=== PATIENT | female | born 1955 | race Caucasian/White ===

== ENCOUNTER → 2017-09-09 | Outpatient (CLI) | payer BC ==
--- NOTE | 2017-09-09 20:08 | Diagnostic Imaging Report ---
EXAMINATION: DEXA scan. INDICATION: Osteopenia. TECHNIQUE: Bone mineral density estimated based on dual energy radiography over the lumbar spine and femoral necks, was performed. FINDINGS: The lumbar spine T-score is -2.3. This is not changed from 2014 measurements. The left femoral neck has T score of -2.8 and on the right side is -2.7. This is 8.7% decreased density measurements compared to 2014 exam. IMPRESSION: Osteoporosis. Dictated by: Dictated on workstation # [id number]
--- NOTE | 2017-09-10 09:45 | Diagnostic Imaging Report ---
Bilateral screening mammogram 2D views with tomosynthesis The current study was also evaluated with a Computer Aided Detection (CAD) system. Indication: Screening. No current complaints stated on the questionnaire. COMPARISON: 10/09/15. FINDINGS: The breasts are composed of extremely dense parenchyma which decreases mammographic sensitivity. There is a 3 cm oval asymmetry in the medial aspect of the left CC projection which appears to be probably relating to the underlying dense parenchyma based on the tomographic evaluation with no obvious mass. The right breast demonstrates no definite change. IMPRESSION: Focal compression view evaluation to the medial left breast asymmetry is recommended. The breasts are extremely dense. Bilateral ultrasound evaluation is also suggested. BI-RADS 0. ACR BI-RADS Category 0: Incomplete. (Needs additional imaging evaluation). Result letter will be mailed to the patient. Note: At least 10% of breast cancer is not imaged by mammography. Dictated by: Dictated on workstation # [id number]
== END ==
LOC: RAD 10:50
PROVIDERS: ATTEND Obstetrics & Gynecology
DX: Z12.31 Encounter for screening mammogram for malignant neoplasm of breast (principal); M85.80 Other specified disorders of bone density and structure, unspecified site; Z87.81 Personal history of (healed) traumatic fracture
CPT/HCPCS: 77067; 77080

== ENCOUNTER → 2017-09-22 | Outpatient (CLI) | payer BC ==
--- NOTE | 2017-09-22 15:33 | Diagnostic Imaging Report ---
EXAMINATION: Left breast diagnostic mammogram with tomography. The current study was also evaluated with a Computer Aided Detection (CAD) system. INDICATION: Medial left breast asymmetry. FINDINGS: A focal compression view of the medial aspect of the left breast demonstrates no definite underlying lesion. Dense background parenchyma is seen. IMPRESSION: Focal compression views demonstrate no definitive underlying lesion favoring summation artifact of the dense background parenchyma resulting in the asymmetry seen on the screening study. An ultrasound evaluation is pending. ACR BI-RADS Category 0: Incomplete. (Needs additional imaging evaluation). Result letter will be mailed to the patient. Note: At least 10% of breast cancer is not imaged by mammography. Dictated by: Dictated on workstation # [id number]
--- NOTE | 2017-09-22 15:36 | Diagnostic Imaging Report ---
EXAMINATION: Bilateral breast ultrasound. TECHNIQUE: All four quadrants and the retroareolar region were examined on this study. FINDINGS: The breasts are scanned with no underlying abnormality seen. IMPRESSION: Negative study. The asymmetry along the medial aspect of the left breast is most likely related to summation artifact of parenchyma. A 6 month followup left breast mammogram is recommended to ensure stability or resolution. ACR BI-RADS Category 3: Probably benign findings. Dictated by: Dictated on workstation # [id number]
== END ==
LOC: RAD 13:14
PROVIDERS: ATTEND Obstetrics & Gynecology
DX: N64.89 Other specified disorders of breast (principal)

== ENCOUNTER → 2018-03-11 | Outpatient (CLI) | payer BC ==
--- NOTE | 2018-03-11 19:06 | Diagnostic Imaging Report ---
INDICATION: Left breast asymmetric density. Patient presents for six-month followup. Correlation is made with prior mammogram from 09/09/2017 and 09/22/2017. CC, ML and MLO 3-D mammography of the left breast was performed. The current study was also evaluated with a Computer Aided Detection (CAD) system. FINDINGS: Left breast is markedly dense, limiting the sensitivity of mammography. The area of asymmetric density in the medial left breast on the CC view is not as prominent on today's study. No underlying mass is identified. No suspicious microcalcifications are seen. The left axilla is unremarkable. IMPRESSION: Unremarkable left mammogram. Patient should return in 6 months for bilateral screening mammography. ACR BI-RADS Category 1: Negative. Result letter will be mailed to the patient. Note: At least 10% of breast cancer is not imaged by mammography. Dictated by: Dictated on workstation # [id number]
== END ==
LOC: RAD 12:29
PROVIDERS: ATTEND Obstetrics & Gynecology
DX: R92.8 Other abnormal and inconclusive findings on diagnostic imaging of breast (principal)

== ENCOUNTER → 2018-09-08 | Outpatient (CLI) | payer BC ==
--- NOTE | 2018-09-08 12:33 | Diagnostic Imaging Report ---
INDICATION: Osteoporosis and high fracture risk. COMPARISON: Comparison is made with prior DEXA study from 09/09/2017. TECHNIQUE: Bone mineral analysis of the lumbar spine and both hips was performed. FINDINGS: The bone mineral density of the lumbar spine L2-L4 is 0.909 with T-score -2.4. This compares with 0.922 and -2.3. The bone mineral density of the left femoral neck is 0.740 with T-score -2.1. This compares with 0.676 and -2.6. Bone mineral density of the right femoral neck is 0.687 with T-score -2.5. This compared with 0.642 and -2.8. IMPRESSION: Osteopenia of the lumbar spine and left femoral neck with osteoporosis of the right femoral neck. Dictated by: Dictated on workstation # [id number]
== END ==
LOC: RAD 08:54
PROVIDERS: ATTEND Obstetrics & Gynecology
DX: M85.89 Other specified disorders of bone density and structure, multiple sites (principal); M81.0 Age-related osteoporosis without current pathological fracture
CPT/HCPCS: 77080

== ENCOUNTER → 2018-09-13 | Outpatient (CLI) | payer BC ==
--- NOTE | 2018-09-13 19:16 | Diagnostic Imaging Report ---
INDICATION: Routine screening. Comparison is made with prior mammogram from 09/09/2017 and 10/09/2015. 2-D and 3-D bilateral screening mammography was performed with CAD. The current study was also evaluated with a Computer Aided Detection (CAD) system. FINDINGS: Both breasts again show marked parenchymal heterogeneity and increased density, limiting the sensitivity of mammography. The parenchymal pattern is stable. No mass or malignant-appearing microcalcifications are seen. The axillae are unremarkable. IMPRESSION: No mammographic features suspicious for malignancy are identified. ACR BI-RADS Category 1: Negative. Result letter will be mailed to the patient. Note: At least 10% of breast cancer is not imaged by mammography. Dictated by: Dictated on workstation # [id number]
== END ==
LOC: RAD 14:43
PROVIDERS: ATTEND Obstetrics & Gynecology
DX: Z12.31 Encounter for screening mammogram for malignant neoplasm of breast (principal)
CPT/HCPCS: 77067

== ENCOUNTER → 2019-08-21 | Outpatient (CLI) | payer BC, OTHER ==
--- NOTE | 2019-08-21 18:39 | Diagnostic Imaging Report ---
EXAMINATION: Left foot at 0415 hours. INDICATION: Injury, foot pain. Three views are obtained. FINDINGS: There is no fracture, dislocation or acute bony abnormality evident. The Lisfranc joint is well maintained. There is a small calcaneal spur. The soft tissues are unremarkable. There is no radiopaque foreign body identified. IMPRESSION: There is no evidence for an acute bony abnormality. Dictated by: Dictated on workstation # [id number]
== END ==
LOC: RAD 15:46
PROVIDERS: ATTEND Nurse Practitioner Primary Care
DX: S99.922A Unspecified injury of left foot, initial encounter (principal)
CPT/HCPCS: 73630

== ENCOUNTER → 2019-10-03 | Outpatient (CLI) | payer BC ==
--- NOTE | 2019-10-03 12:34 | Diagnostic Imaging Report ---
INDICATION: Routine screening. COMPARISON: Comparison is made with prior mammograms from 09/13/2018 and 09/09/2017. TECHNIQUE: 2-D and 3-D bilateral screening mammography was performed. The current study was also evaluated with a Computer Aided Detection (CAD) system. 3-D tomosynthesis was also performed and reviewed. FINDINGS: Both breasts are extremely dense, limiting the sensitivity of mammography. No dominant mass or malignant-appearing microcalcifications are seen. Axillae are unremarkable. IMPRESSION: No mammographic features suspicious for malignancy are identified. ACR BI-RADS Category 1: Negative. Result letter will be mailed to the patient. Note: At least 10% of breast cancer is not imaged by mammography. Dictated by: Dictated on workstation # [id number]
== END ==
LOC: RAD 07:43
PROVIDERS: ATTEND Obstetrics & Gynecology
DX: Z12.31 Encounter for screening mammogram for malignant neoplasm of breast (principal)
CPT/HCPCS: 77067